=== PATIENT | male | born 1970 | race Caucasian/White ===

== ENCOUNTER 2024-08-23 06:13 | Day surgery (SDC) | payer OTHER, SELFPAY ==
[2024-08-19 12:01] VITALS: BMI 33.3
--- NOTE | 2024-08-19 13:09 | P.CONAN_ITS ---
Documented by User: Kristine Stoddard NP 08/19/24 13:09 HPI - Anesthesia Eval Consult details Narrative: 54yo M for ?Colonoscopy PMFSH Past Medical History Medical History Elevated cholesterol HTN (hypertension) Surgical History Surgical History Hx of wisdom tooth extraction Hx of rhinoplasty Social History Social History Are you a primary spiritual care coordinator to a significant other at home: No Do you presently have visiting nurse or other home services: No Patient Tobacco Use Status: Never used Tobacco Have you been hit, kicked, punched, or otherwise hurt by someone within the past year? If so, by whom?: No Are you DNR?: No Advance Directives: No Advance Directives Information Provided: Yes Recently lost weight without trying: No Nutrition Risks: No Nutritional Risk Meds Allergies Allergy/AdvReac Type Severity Reaction Status Date / Time No Known Allergies Allergy Verified 08/23/24 06:47 Home Medications ?Medication ?Instructions ?Recorded ?Confirmed ?Last Taken ?Type atorvastatin 40 mg tablet 40 mg PO DAILY 08/19/24 08/19/24 Unknown History losartan 50 mg-hydrochlorothiazide 1 tab PO DAILY 08/19/24 08/19/24 08/23/24 History 12.5 mg tablet Exam Height,Weight and Vital Signs: Height 5 ft 11 in Weight 108.409 kg Assessment and Plan Assessment Anesthesia Assessment: Chart Reviewed Documented by User: Berenice Butler MD 08/23/24 07:51 PMF Past Medical History Medical History Elevated cholesterol HTN (hypertension) Family History Family history of problems with anesthesia: No Surgical History Surgical History Hx of wisdom tooth extraction Hx of rhinoplasty History of Problems with Anesthesia: No Social History Social History Are you a primary spiritual care coordinator to a significant other at home: No Do you presently have visiting nurse or other home services: No Patient Tobacco Use Status: Never used Tobacco Have you been hit, kicked, punched, or otherwise hurt by someone within the past year? If so, by whom?: No Are you DNR?: No Advance Directives: No Advance Directives Information Provided: Yes Recently lost weight without trying: No Nutrition Risks: No Nutritional Risk Meds Allergies Allergy/AdvReac Type Severity Reaction Status Date / Time No Known Allergies Allergy Verified 08/23/24 06:47 Home Medications ?Medication ?Instructions ?Recorded ?Confirmed ?Last Taken ?Type atorvastatin 40 mg tablet 40 mg PO DAILY 08/19/24 08/19/24 Unknown History losartan 50 mg-hydrochlorothiazide 1 tab PO DAILY 08/19/24 08/19/24 08/23/24 History 12.5 mg tablet Exam Airway Mallampati Class: II TM Dist: >3cm Neck ROM: Full Heart: rrr Lungs: cta Assessment and Plan Assessment Anesthesia Assessment: Anesthesia Plan Discussed Final Anesthetic Review Family History of Problems with Anesthesia: No History of Problems with Anesthesia: No NPO: Yes ASA Class: III Final Preanesthetic Review: No Changes in Pt Med Stat, Meds/Allgs Chart Reviewed, Consent Obtained/Reviewed and Anes Risks/Benef Reviewed Patient Risk: Intermediate Procedure Risk: Low Anesthetic Plan Anesthetic Plan: MAC: Disposition: Standard PACU
[2024-08-23 06:39] VITALS: BMI 32.1
[2024-08-23] MEDS: Lactated Ringers 1,000 ML 100 ML IVCONT (06:40)
[2024-08-23 06:59] VITALS: BP 129/83; PULSE 68; RESP 18; TEMP 36.6; O2SAT 96
[2024-08-23 08:45] VITALS: BP 139/89; PULSE 79; RESP 16; TEMP 36.3; O2SAT 97
--- NOTE | 2024-08-23 08:49 | PM.OP ---
Brief Operative Note Date of Service: 08/23/24 Pre-op diagnosis: Screening Post-op diagnosis: other (Polyp) Procedure: Colonoscopy to the cecum with bx/removal of polyp Surgeon: Christian Farr MD Anesthesia: MAC Was an Patient Service Specialist used for this Procedure?: No Estimated blood loss (mL): 2.0 Pathology: other (A. Cecal polyp) Condition: stable Disposition: PACU
--- NOTE | 2024-08-23 08:57 | OP_ITS ---
DATE OF SERVICE: 08/23/2024 SURGEON: Christian Farr MD INDICATIONS: The patient presents for evaluation of colorectal cancer screening. Full consent obtained from him for this, including risks of bleeding and perforation. PREOPERATIVE DIAGNOSIS: Colorectal cancer screening. POSTOPERATIVE DIAGNOSIS: Colorectal cancer screening, small colon polyp, sigmoid diverticulosis, and internal hemorrhoids. PROCEDURE PERFORMED: Colonoscopy to cecum with biopsy, removal of polyp. ESTIMATED BLOOD LOSS: COMPLICATIONS: ANESTHESIA: Monitored anesthesia care. ASSISTANTS: SPECIMENS: DESCRIPTION OF PROCEDURE: The patient was placed in the left lateral decubitus position. The digital rectal exam revealed no abnormalities. The Olympus video pediatric colonoscope was entered into the rectum and advanced to the cecum with the assistance of abdominal wall pressure. Once in the cecum, I did identify cecal pouch with appendiceal orifice and a normal-appearing ileocecal valve. The entire cecum was well visualized and appeared normal other than an approximately 3 or 4 mm polyp, which was biopsied and completely removed with cold biopsy forceps. The scope was then slowly withdrawn assessing all mucosal surfaces carefully. Preparation was excellent. I did not visualize any other polyps, colitis, nor angiodysplasia. There was a mild amount of sigmoid diverticulosis. In the rectum, scope was retroflexed visualizing small internal hemorrhoids, but no other pathology. The rectal mucosa appeared normal. The scope was straightened and withdrawn from the patient. He tolerated the procedure well and was returned to the recovery area in stable condition. IMPRESSION: 1. Small colon polyp. 2. Mild diverticulosis. 3. Small internal hemorrhoids. PLAN: The results of biopsy will be checked. If this is a tubular adenoma, I would recommend a followup coloscopy in 5 years. He will otherwise see me on a p.r.n. basis. MD FAHAD Ramos/PATRICIA / [id number]
[2024-08-23 09:00] VITALS: BP 151/103; PULSE 69; RESP 16; O2SAT 96
[2024-08-23 09:15] VITALS: BP 145/96; PULSE 64; RESP 16; TEMP 36.3; O2SAT 96
== END 2024-08-23 10:08 | disposition home or self-care (01) ==
PROVIDERS: PCP Internal Medicine; Visit Provider Internal Medicine
PROC: 0DJD8ZZ Inspection of Lower Intestinal Tract, Via Natural or Artificial Opening Endoscopic (ICD-10-PCS; CPT 45378; principal; 2024-08-23 07:30)
DX: Z12.11 Encounter for screening for malignant neoplasm of colon (principal); D12.0 Benign neoplasm of cecum; K57.30 Diverticulosis of large intestine without perforation or abscess without bleeding; K64.8 Other hemorrhoids; I10 Essential (primary) hypertension; E78.00 Pure hypercholesterolemia, unspecified; Z79.02 Long term (current) use of antithrombotics/antiplatelets; Z79.899 Other long term (current) drug therapy
CPT/HCPCS: 45380; 88305; J1100; J1596; J2003; J2250; J2405; J2704